=== PATIENT | male | born 1955 | race Caucasian/White ===

== ENCOUNTER 2023-03-20 17:35 | Emergency (ER) | payer OTHER ==
[2023-03-20 17:42] VITALS: BP 173/92; PULSE 65; RESP 19; TEMP 98.2; BMI 28.1
[2023-03-20] MEDS ORDERED: FAMOTIDINE 20 MG/50 ML IVPB 20 MG/50 ML MG IVPB ONE ×2 (19:56→19:58)
== END 2023-03-20 19:37 | disposition left against medical advice (07) ==
LOC: JER 17:35
DX: K21.9 Gastro-esophageal reflux disease without esophagitis (principal); R10.32 Left lower quadrant pain
CPT/HCPCS: 99283-25

== ENCOUNTER 2023-03-21 05:22 | Emergency (ER) | payer OTHER ==
[2023-03-21 05:30] VITALS: BP 166/80; PULSE 64; RESP 18; TEMP 98; BMI 28.1
[2023-03-21] MEDS ORDERED: ACETAMINOPHEN 1000 MG/100 ML BAG IVPB ONE (05:53)
[2023-03-21] MEDS ORDERED: SODIUM CHLORIDE 0.9% 500 ML INFUS.BAG IV ONE (05:53)
[2023-03-21] MEDS ORDERED: FAMOTIDINE 20 MG/50 ML IVPB 20 MG/50 ML MG IVPB ONE ×2 (05:53→06:13)
[2023-03-21] MEDS ORDERED: ACETAMINOPHEN INJECTION 100 ML IVPB ONE (06:13)
[2023-03-21 06:59] LABS: BASO % 2.3 % (0-2.0); HEMATOCRIT 39.9 % (35.4-49); HEMOGLOBIN 13.6 GM/dL (11.7-16.9); LYMPH % 16.3 % (8-40); MCH 31.2 pg (25.7-33.7); MCHC 34.1 g/dl (32.0-35.9); MEAN CELL VOLUME 91.7 fl (80-96); MEAN PLT VOLUME 8.2 fl (7.5-11.1); MONO % 8.3 % (3.8-10.2); NEUT % 70.1 % (42.8-82.8); PLATELET COUNT 233 10^3/uL (134-434); RBC 4.35 M/mm3 (4.00-5.60); RDW 12.4 % (11.9-15.9); WHITE BLOOD COUNT 7.8 K/mm3 (4.0-10.0)
[2023-03-21 07:20] LABS: POTASSIUM 4.2 mmol/L (3.5-5.1)
[2023-03-21 07:23] LABS: ALBUMIN 3.3 g/dl (3.4-5.0); BLOOD UREA NITROGEN 15.4 mg/dL (7-18)
[2023-03-21 07:26] LABS: CREATININE 1.1 mg/dL (0.55-1.3)
[2023-03-21 07:27] LABS: BILIRUBIN,TOTAL 0.8 mg/dL (0.2-1); TOT PROT 7.5 g/dl (6.4-8.2)
[2023-03-21 08:22] LABS: URINE APPEARANCE CLEAR; URINE BILIRUBIN NEGATIVE (NEGATIVE); URINE COLOR YELLOW; URINE GLUCOSE (UA) NEGATIVE (NEGATIVE); URINE KETONE NEGATIVE (NEGATIVE); URINE LEUK ESTERASE NEGATIVE (NEGATIVE); URINE NITRITE NEGATIVE (NEGATIVE); URINE PROTEIN TRACE (NEGATIVE)
== END 2023-03-21 11:20 | disposition home or self-care (01) ==
LOC: JER 05:22
PROC: 3E033GC Introduction of Other Therapeutic Substance into Peripheral Vein, Percutaneous Approach (ICD-10-PCS; principal; 2023-03-21)
PROC: 3E033NZ Introduction of Analgesics, Hypnotics, Sedatives into Peripheral Vein, Percutaneous Approach (ICD-10-PCS; 2023-03-21)
DX: R10.32 Left lower quadrant pain (principal)
CPT/HCPCS: 36415; 71046-TC-FY; 74177-TC; 80053; 81003; 83605; 83690; 84484; 85025; 87086; 93005; 93010; 96365; 96375; 99285-25; Q9967

== ENCOUNTER 2024-07-17 15:40 | Emergency (ER) | payer OTHER ==
[2024-07-17 15:52] VITALS: RESP 18; TEMP 98.4; BMI 28.1
[2024-07-17] MEDS ORDERED: chlordiazePOXIDE HCL 25 MG CAPSULE ONE (17:04)
[2024-07-17] MEDS: chlordiazePOXIDE HCL 25 MG CAPSULE PO ONE (17:09)
[2024-07-17] MEDS: SODIUM CHLORIDE 1,000 ML IV STA (17:10)
[2024-07-17] MEDS: FOLIC ACID 1 MG TABLET (FP) PO ONE (17:10)
[2024-07-17] MEDS: THIAMINE HCL 200 MG/2 ML VIAL IVPB ONE (17:31)
[2024-07-17 17:34] LABS: ABSOLUTE IMMATURE GRANULOCYTES 0.05 x10^3/uL (0.0-0.031); BASOPHILS # 0.14 x10^3/uL (0.01-0.08); EOSINOPHIL % 1.8 % (0.8-7.0); EOSINOPHILS # 0.18 x10^3/uL (0.04-0.54); HEMATOCRIT 36.2 % (40.1-51.0); HEMOGLOBIN 12.3 g/dL (13.7-17.5); MEAN PLT VOLUME 10.4 fl (9.4-12.4); MONOCYTE % 10.3 % (5.3-12.2); PLATELET COUNT 212 x10^3/uL (163-337); RDW 12.5 % (12.2-16.4)
[2024-07-17 17:36] LABS: VENOUS BASE EXCESS 0.3 mmol/L (-2-2); VENOUS O2 SATURATION 64.8 % (70-80); VENOUS PCO2 42.3 mmHg (38-52); VENOUS PH 7.395 (7.310-7.410)
[2024-07-17] MEDS: FOLIC ACID INJECTION - 1 MG, THIAMINE HCL 100 MG, MULTIVIT INJECTION ADULT 10 ML in SOD... IVPB ONE (17:57)
[2024-07-17 18:03] LABS: POTASSIUM 5.1 mmol/L (3.5-5.1)
[2024-07-17 18:05] LABS: CALCIUM 9.6 mg/dL (8.5-10.1)
[2024-07-17 18:06] LABS: ALBUMIN 3.1 g/dl (3.4-5.0); BLOOD UREA NITROGEN 25.5 mg/dL (7-18)
[2024-07-17 18:09] LABS: CREATININE 1.4 mg/dL (0.55-1.3)
[2024-07-17 18:10] LABS: BILIRUBIN,TOTAL 0.8 mg/dL (0.2-1)
[2024-07-17] MEDS ORDERED: diazePAM CARPU-JECT 10 MG/2 ML DISP.SYRIN ONE (18:11)
[2024-07-17] MEDS: diazePAM CARPU-JECT 10 MG/2 ML DISP.SYRIN IVPUSH ONE (18:22)
[2024-07-17 19:07] VITALS: BP 110/72; PULSE 79
== END 2024-07-17 22:52 | disposition home or self-care (01) ==
LOC: JER 15:40
PROC: 3E033GC Introduction of Other Therapeutic Substance into Peripheral Vein, Percutaneous Approach (ICD-10-PCS; principal; 2024-07-17)
PROC: 3E033GC Introduction of Other Therapeutic Substance into Peripheral Vein, Percutaneous Approach (ICD-10-PCS; 2024-07-17)
DX: F10.930 Alcohol use, unspecified with withdrawal, uncomplicated (principal); R25.1 Tremor, unspecified; R44.3 Hallucinations, unspecified
CPT/HCPCS: 36415; 80053; 82803; 82962; 83605; 83690; 84484; 85025; 93005; 93010; 96365; 96375; 99284-25